=== PATIENT | female | born 1940 | race Two or more races ===

== ENCOUNTER 2019-04-08 11:54 | Emergency (ER) | payer MEDICARE, BC ==
--- NOTE | 2019-04-08 12:13 | Emergency Department Record ---
History of Present Illness - General Chief complaint: Heat Cramps/exhaustion/stroke Stated complaint: STROKE SYMPTOMS Time Seen by Provider: 04/08/19 12:04 Source: Patient, Family Mode of Arrival: Ambulatory Limitations: No limitations - History of Present Illness Initial comments: The patient is here due to multiple complaints. She has had a 4 day hx of intermittent R hand and foot tingling, L arm weakness, R facial drooping, L eye visual blurring, and mild difficulty walking with slightly slurred speech. The symptoms seem to come and go and presently are better. The patient was over at her PCP's office today and was sent here due to possibly having stroke symptoms. The patient denies any CP, SOB, PERAZA, or AP. MD Complaint: Difficulty walking, Focal weakness, Lack of energy, Numbness, Tingling Onset/Timin -: Days(s) Location: RUE, RLE Consistency: Constant Improves with: None Worsens with: None Associated Symptoms: Denies other symptoms - Related Data Home Medications Medication Instructions Recorded Confirmed Last Taken Atorvastatin Calcium 10 mg PO DAILY 04/08/19 04/08/19 Unknown Lisinopril 10 mg PO DAILY 04/08/19 04/08/19 Unknown Allergies Allergy/AdvReac Type Severity Reaction Status Date / Time acetaminophen [From PAMPRIN] Allergy Unknown HIVES Verified 04/08/19 13:19 pamabrom [From PAMPRIN] Allergy Unknown HIVES Verified 04/08/19 13:19 pyrilamine maleate Allergy Unknown HIVES Verified 04/08/19 13:19 [From PAMPRIN] Travel/Exposure Screening - Travel/Exposure Within Last 30 Days Have you traveled within the last 30 days?: No - Additonal Travel/Exposure Details Have you been exposed to anyone with a communicable illness?: No Review of Systems Constitutional: Denies: Chills, Fever Eyes: Denies: Eye discharge ENT: Denies: Congestion Respiratory: Denies: Cough, Dyspnea Cardiovascular: Denies: Chest pain Endocrine: Denies: Fatigue Gastrointestinal: Denies: Nausea Genitourinary: Denies: Dysuria Musculoskeletal: Denies: Arthralgia Skin: Denies: Bruising Past Medical History - SOCIAL HISTORY Smoking Status: Never smoker Alcohol Use: None Drug Use: None - RESPIRATORY Hx Respiratory Disorders: No - CARDIOVASCULAR Hx Cardio Disorders: Yes Hx Hypertension: Yes Comment:: high cholesterol - NEURO Hx Neuro Disorders: No - GI Hx GI Disorders: No - Hx Genitourinary Disorders: No - ENDOCRINE Hx Endocrine Disorders: No - MUSCULOSKELETAL Hx Musculoskeletal Disorders: No - PSYCH Hx Psych Problems: No - HEMATOLOGY/ONCOLOGY Hx Hematology/Oncology Disorders: No Family Medical History Any Significant Family History?: No Physical Exam - General General Appearance: Alert, Oriented x3, Cooperative, No acute distress - Head Head exam: Atraumatic, Normocephalic, Normal inspection - Eye Eye exam: Normal appearance, PERRL - ENT Throat exam: Normal inspection. negative: Tonsillar erythema, Tonsillar exudate - Neck Neck exam: Normal inspection, Full ROM, Other (Neg Carotid bruits.). negative: Lymphadenopathy, Tenderness - Respiratory Respiratory exam: Normal lung sounds bilaterally. negative: Respiratory distress - Cardiovascular Cardiovascular Exam: Regular rate, Normal rhythm, Normal heart sounds - GI/Abdominal GI/Abdominal exam: Soft, Normal bowel sounds. negative: Tenderness - Extremities Extremities exam: Normal inspection, Full ROM, Normal capillary refill. negative: Tenderness - Neurological Neurological exam: Alert, Normal gait, Oriented X3, Reflexes normal, Other (Neg Drift and Rhomberg exams.). negative: Abnormal gait, Altered, Motor sensory deficit - Psychiatric Psychiatric exam: negative: Anxious - Skin Skin exam: negative: Rash Course Vital Signs 04/08/19 11:57 Temperature 97.9 F Pulse Rate 57 L Respiratory 20 Rate Blood Pressure 179/68 Pulse Ox 97 - Reevaluation(s) Reevaluation #1: The patient is doing very well at this time. She denies any weakness or numbness. I did explain the fact the Head CT is normal and the lab work does not demonstrate any significant abnormalities. Due to the nature of complaints I did discuss the case with Dr. Gee who is on the stroke team at [facility] and he would like the patient to be transferred to the ER for further evaluation. I then did discuss the case with Dr. oB in the ER who accepted the patient in an ER to ER transfer. 04/08/19 13:14 Medical Decision Making - Data Complexity MDM Data: Labs Ordered and/or Reviewed, X-Ray Ordered and/or Reviewed, EKG Ordered and/or Reviewed - Lab Data Result diagrams: 04/08/19 12:05 04/08/19 12:05 - EKG Data -: EKG Interpreted by Me EKG: No Acute Changes, Normal EKG - Radiology Data Radiology results: Report reviewed (Head CT: Neg for acute changes.) Disposition Disposition: Transfer Clinical Impression: TIA (transient ischemic attack) Disposition: Acute Care Hospital Transfer Transfer To: [facility] ER Reason For Transfer: Neurology Accepting Physician: Anupam Time Discussed w/Accepting Physician: 13:17 Condition: (2) Stable Instructions: Transient Ischemic Attack (ED) Forms: Patient Portal Access Time of Disposition: 13:17 Quality - Quality Measures Quality Measures: N/A - Blood Pressure Screening View Details: Yes Does Patient Have Any of the Following: Active Dx of HTN Blood Pressure Classification: Pre-Hypertensive BP Reading Systolic Measurement: 197 Diastolic Measurement: 86 Screening for High Blood Pressure: Patient Exclusion, Hx of HTN [[id number]]
[2019-04-08 12:24] LABS: ABSOLUTE NEUTROPHIL COUNT 3.16; BASO % 0.4 % (0-6); EOS % 7.6 % (0-6); GRAN % 59.7 % (47-80); HEMATOCRIT 39.9 % (35.0-47.0); HEMOGLOBIN 12.4 gm/dl (11.6-16.0); LYMPH % 23.8 % (16-45); MEAN CELL VOLUME 98.3 fl (81-97); MEAN CORPUSCULAR HEMOGLOBIN 30.5 pg (27-33); MEAN CORPUSCULAR HGB CONC 31.1 g/dl (32-36); MEAN PLATELET VOLUME 8.6 fl (7.4-10.4); MONO % 8.5 % (0-9); PLATELET COUNT 267 K/uL (130-400); RED BLOOD COUNT 4.06 M/uL (3.80-5.40); RED CELL DISTRIBUTION WIDTH 13.6 % (11.5-14.5); WHITE BLOOD COUNT W/O DIFF 5.3 K/uL (4.2-12.2)
[2019-04-08 12:34] LABS: PARTIAL THROMBOPLASTIN TIME 28.8 SECONDS (24.5-39.1); PROTHROMBIN TIME (PATIENT) 10.4 SECONDS (9.5-12.1)
--- NOTE | 2019-04-08 12:38 | CT SCAN REPORT ---
EXAMINATION: CT Head without IV Contrast EXAM DATE: 04/08/2019 12:29 PM TECHNIQUE: Standard protocol CT images of the head were obtained without intravenous contrast. Gonzalez l and sagittal reconstructed images were created. INDICATION: L arm weakness, confusion COMPARISON: None HAND DOMINANCE: Unknown. ENCOUNTER: Not applicable FINDINGS: 1. There is no intracranial mass, midline shift, extraaxial fluid collection or hemorrhage. 2. The ventricles, sulci and cisterns are normal. 3. Mild degree of scattered hypodensities in the supratentorial brain suggestive of chronic small ve ssel ischemic changes. 4. There is no fracture. 5. The visualized aspects of the orbits, paranasal sinuses, and mastoid air cells are normal. IMPRESSION: 1. No intracranial hemorrhage evident. 2. Mild degree of scattered hypodensities in the supratentorial brain suggestive of chronic small v essel ischemic changes. Case discussed with Dr. Alicea at 12:35 PM on 04/08/2019. Dictated by: Holden Reyes DO on 04/08/2019 12:34 PM. .
[2019-04-08 12:47] LABS: ALB/GLOB RATIO 1.2 (1.1-1.8); ALBUMIN 4.1 g/dL (4.0-5.0); ALKALINE PHOSPHATASE 79 U/L (35-104); ALT/SGPT 12 U/L (<33); AST/SGOT 20 U/L (10.0-35.0); BLOOD UREA NITROGEN 25 mg/dL (8-23); CREATININE 1.1 mg/dL (0.5-0.9); EST GLOMERULAR FILTRATION RATE 51 mL/min; GLUCOSE,RANDOM 100 mg/dL (74-109); TOTAL PROTEIN 7.5 g/dL (6.6-8.7)
[2019-04-08 12:54] LABS: THYROID STIMULATING HORMONE 0.92 uIU/mL (0.270-4.20)
[2019-04-08] MEDS ORDERED: ASPIRIN 325 MG TABLET PO ONE (12:59)
== END 2019-04-08 13:29 | disposition short-term general hospital (02) ==
LOC: ER 11:54
DX: G45.9 Transient cerebral ischemic attack, unspecified (principal); I10 Essential (primary) hypertension
CPT/HCPCS: 70450; 80053; 84443; 84484; 85025; 85610; 85730; 93005; 93010; 99285